=== PATIENT | female | born 1980 | race African-American/Black ===

== ENCOUNTER 2018-04-27 22:36 | Emergency (ER) | payer SELFPAY ==
[~2018-04-27] VITALS: Ht 162.6 cm; Wt 49.9 kg
[2018-04-27 23:04] VITALS: BP 129/69
--- NOTE | 2018-04-27 23:11 | NUR ---
CALLED IN [facility] TO BRING BACK TO ER BED; NO RESPONSE. NOT IN [facility].
--- NOTE | 2018-04-27 23:16 | NUR ---
CALLED IN [facility] TO BRING PT BACK TO ROOM #3. NO RESPONSE.
--- NOTE | 2018-04-27 23:24 | NUR ---
PER ADMITTING, PT STATED SHE WAS LEAVING. NO LONGER IN ER.
== END 2018-04-27 23:25 | disposition left against medical advice (07) ==
LOC: ER 22:42
DX: H92.02 Otalgia, left ear (principal); Z53.21 Procedure and treatment not carried out due to patient leaving prior to being seen by health care provider
CPT/HCPCS: A4606; Z7610

== ENCOUNTER 2018-10-16 20:31 | Emergency (ER) | payer SELFPAY ==
[~2018-10-16] VITALS: Ht 162.6 cm; Wt 47.6 kg
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
[2018-10-16] MEDS ORDERED: KETOROLAC TROMETHAMINE INJ 60 MG/2 ML VIAL IM ONE (21:30)
[2018-10-16 21:43] LABS: APPEARANCE,URINE CLEAR (CLEAR); BASOPHILS % (AUTO) 0.3 % (0.0-2.0); BILIRUBIN,URINE NEGATIVE (NEGATIVE); BLOOD, URINE NEGATIVE Ery/uL (NEGATIVE); COLOR,URINE YELLOW (YELLOW); EOSINOPHILS % (AUTO) 2.2 % (0.0-6.0); HEMATOCRIT 40 % (33-45); HEMOGLOBIN 13.5 g/dL (11.5-14.8); KETONES,URINE TRACE (NEGATIVE); LEUKOCYTE ESTERASE ,URINE NEGATIVE (NEGATIVE); LYMPHOCYTES # (AUTO) 2.1 /CMM (0.8-4.8); LYMPHOCYTES % (AUTO) 39.6 % (20.0-44.0); MEAN CORPUSCULAR HGB CONC 34 g/dl (31.0-36.0); MEAN CORPUSCULAR VOLUME 89 fL (82-100); MONOCYTES # (AUTO) 0.5 /CMM (0.1-1.30); MONOCYTES % (AUTO) 10.1 % (2.0-12.0); NEUTROPHILS # (AUTO) 2.6 /CMM (1.8-8.9); NEUTROPHILS % (AUTO) 47.8 % (43.0-81.0); NITRITE, URINE NEGATIVE (NEGATIVE); PLATELET COUNT (AUTO) 290 /CMM (150-450); PROTEIN,URINE NEGATIVE (NEGATIVE); RED BLOOD CELL COUNT(AUTO) 4.49 MIL/uL (4.0-5.2); UGLUCOSE NEGATIVE (NEGATIVE); UROBILINOGEN,URINE 0.2 EU/dL (0.2); WHITE BLOOD COUNT (AUTO) 5.4 K/uL (4.3-11.0)
[2018-10-16 21:55] LABS: BACTERIA,URINE None seen /HPF (None Seen); RBC,URINE 0-2 /HPF (0-2); SQUAMOUS EPITHELIAL CELL,UR Rare /HPF (None Seen); WBC,URINE 0-2 /HPF (0-3)
--- NOTE | 2018-10-16 21:55 | NUR ---
urine already collected and sent to lab
[2018-10-16 21:57] LABS: CALCIUM, SERUM 8.7 mg/dL (8.5-10.1); CREATININE 1.2 mg/dL (0.6-1.3); POTASSIUM 3.9 mmol/L (3.5-5.1)
[2018-10-16 22:02] LABS: ALBUMIN 3.5 g/dL (3.4-5.0); BILIRUBIN,DIRECT 0.1 mg/dL (0.0-0.2); BILIRUBIN,TOTAL 0.2 mg/dL (0.2-1.0); TOTAL PROTEIN, SERUM 7.3 g/dL (6.4-8.2)
[2018-10-16] MEDS ORDERED: KETOROLAC TROMETHAMINE INJ 30 MG/ML VIAL ONE (22:06)
--- NOTE | 2018-10-16 22:13 | NUR ---
administered toradol 30mg IM on Rt deltoid
--- NOTE | 2018-10-16 23:15 | NUR ---
Patient discharged to home in stable condition. Written and verbal after care instructions given. Patient verbalizes understanding of instruction. patient left facility on foot with steady gait. No s/s of acute distress or sob noted. 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 Pt had no IV access. ID band removed.
[2018-10-16 23:18] VITALS: BP 118/76
== END 2018-10-16 23:19 | disposition home or self-care (01) ==
LOC: ER 20:34
DX: M62.830 Muscle spasm of back (principal); K52.9 Noninfective gastroenteritis and colitis, unspecified; V49.49XA Driver injured in collision with other motor vehicles in traffic accident, initial encounter; Y93.89 Activity, other specified; Y92.413 State road as the place of occurrence of the external cause; Y99.8 Other external cause status
CPT/HCPCS: 36415; 80048; 80076; 81001; 83690; 84703; 85025; 96372; 99283; A4606; J1885; Z7610; 81000-TC